=== PATIENT | male | born 1975 | race Caucasian/White ===

== ENCOUNTER 2021-07-19 12:02 | Emergency (ER) | payer SELFPAY ==
[2021-07-19] MEDS ORDERED: Lidocaine 1% 30 ML SDV ONE (12:11)
== END 2021-07-19 12:35 | disposition home or self-care (01) ==
LOC: DL.ED 12:02
DX: S81.811A Laceration without foreign body, right lower leg, initial encounter (principal); W26.8XXA Contact with other sharp object(s), not elsewhere classified, initial encounter
CPT/HCPCS: 12002; 99283-25

== ENCOUNTER 2021-11-14 12:30 | Emergency (ER) | payer OTHER ==
[2021-11-14] MEDS ORDERED: fentaNYL 100 MCG/2 ML SDV IVPUSH ONE ×2 (13:20→13:28)
[2021-11-14 13:27] LABS: ANION GAP 11.8 mEq/L (7-13); CHLORIDE,CL 104 mmol/L (98-107); SODIUM,NA 141 mmol/L (136-145)
[2021-11-14 13:29] LABS: ESTIMATED GFR > 60
[2021-11-14] MEDS ORDERED: Iopamidol 612 MG/ML 100 ML Bottle IVPUSH ONE (14:20)
== END 2021-11-14 14:30 | disposition left against medical advice (07) ==
LOC: DL.ED 12:30
DX: S61.531A Puncture wound without foreign body of right wrist, initial encounter (principal); R07.81 Pleurodynia; M54.50 Low back pain, unspecified; Z79.899 Other long term (current) drug therapy; Z90.49 Acquired absence of other specified parts of digestive tract; V90.89XA Drowning and submersion due to other accident to unspecified watercraft, initial encounter
CPT/HCPCS: 36415; 70450; 71260; 72125; 72128; 72131; 74177; 80053; 80307; 82150; 83735; 83880; 84484; 85025; 85610; 86850; 86900; 86901; 99285; Q9967; J3010